=== PATIENT | female | born 1950 | race Caucasian/White ===

== ENCOUNTER → 2018-01-10 10:54 | Outpatient (CLI) | payer MEDICARE, OTHER, SELFPAY | PROVIDERS: Visit Provider Physician Assistant | DX: Z53.9 Procedure and treatment not carried out, unspecified reason (principal) ==

== ENCOUNTER 2018-03-09 07:39 | Day surgery (SDC) | payer MEDICARE, OTHER, SELFPAY ==
[2018-03-09 08:14] VITALS: BP 112/80; PULSE 67; RESP 14; TEMP 36.2; O2SAT 96; BMI 28.7
[2018-03-09] MEDS: SODIUM CHLORIDE 0.9% 1,000 ML 200 ML IV (08:23)
--- NOTE | 2018-03-09 09:04 | PM.HP.1 ---
History of Present Illness Date Patient Seen: 03/09/18 Time Patient Seen: 09:00 Chief complaint: [id number] Narrative: The patient is a woman here for an EGD and possible dilatation. She is having dysphagia of liquids principally causing choking. Solid stone seem to bother her. She has had a problem like this in the past except with solids the cause the problem. Patient History Medical History Dysphagia (Acute) Surgical History Status post dilatation of esophageal stricture (Inactive) Family & Social History Family History: Reviewed 03/09/18 by Jeff Watson MD Social History: household members spouse Meds Home Medications Medication Instructions Recorded Confirmed Type cholecalciferol (vitamin D3) 1 tab PO QDAY #0 08/01/16 03/09/18 History [Vitamin D3] dimenhydrinate [Dramamine] 50 mg PO PRN PRN #0 08/01/16 03/09/18 History doxylamine succinate [Sleep Aid 25 mg PO PRN PRN #0 08/01/16 03/09/18 History (doxylamine)] magnesium oxide 250 mg PO DAILY #0 08/01/16 03/09/18 History [employer] sleep aid PO 02/02/18 02/02/18 History ibuprofen 600 mg tablet 600 mg PO BID PRN tab 02/02/18 03/09/18 History melatonin 5 mg capsule 10 mg PO PRN PRN cap 02/02/18 03/09/18 History multivitamin tablet 1 tab PO DAILY 02/02/18 03/09/18 History omeprazole 20 mg capsule,delayed 20 mg PO DAILY 02/02/18 03/09/18 History release Allergies Allergy/AdvReac Type Severity Reaction Status Date / Time Penicillins [PENICILLINS] AdvReac Unknown NAUSEA Verified 03/09/18 09:03 Review of Systems Review of Systems All systems reviewed & are unremarkable except as noted in HPI and below Exam Vital Signs (past 8 hours): - 03/09/18 08:14 Temperature 97.2 F L Pulse Rate 67 Respiratory Rate 14 Blood Pressure 112/80 Pulse Oximetry 96 Oxygen Delivery Method Room Air Narrative Exam Narrative: Co Operative no apparent distress. Eyes nonicteric. Lungs are clear to auscultation without rales or rhonchi. Heart regular rate and rhythm without murmur or gallop abdomen is protuberant soft nontender without mass. Alert and oriented x3. Assessment & Plan Plan: Assessment/Plan Narrative: Patient with dysphagia of liquids. We will proceed EGD. I have discussed procedure rationale. Discussed possible dilatation. Risks of bleeding and perforation discussed. She appears to understand wishes to proceed.
[2018-03-09] MEDS: TETRACAINE/BENZOCAINE/BUTAMBEN (CETACAINE) BOTTLE 1 SPRAY TOP (09:08)
--- NOTE | 2018-03-09 09:08 | PM.PREOP ---
Pre-operative Note Interval Note Pre-op Check: Yes History & Physical exam performed today by Physician Changes: No ASA Class (for procedural sedation): I
[2018-03-09] MEDS: LIDOCAINE 4% SOLN 50 ML 20 ML TOP (09:09)
[2018-03-09] MEDS: ONDANSETRON 4 MG/2 ML INJ IV (09:11)
[2018-03-09] MEDS: MIDAZOLAM 5 MG/5 ML VIAL IV (09:23)
--- NOTE | 2018-03-09 09:23 | PM.OP.ENDO ---
Operative Date/Time/Diagnoses Date of procedure: 03/09/18 Time of procedure: 09:23 Pre-op diagnosis: Dysphagia of liquids Post-op diagnosis: same Procedure & Clinicians Study performed: EGD Same procedure as scheduled: Yes Indications: Evaluate cause of dysphagia Surgeon: Jeff Watson Procedure Notes SCOAP/Timeout: Performed Procedure in detail: The patient had topical anesthetic applied to oropharynx. She was placed in left lateral decubitus position and underwent IV sedation directed by the surgeon consisting of fentanyl and Versed. A bite block was inserted and the scope was advanced through it into the esophagus. I took great care entering the esophagus to evaluate this area and there was nothing untoward. The esophagus was unremarkable. GE junction was noted at 30 cm from the incisors. There was a 1 cm hiatal hernia. There was no inflammation and no stricture. The stomach insufflated well. There were no lesions seen in the body, antrum or at the incisura. The pyloric channel was [normally patent]. The duodenum was unremarkable to the 4th part. The scope was brought back into the stomach and retroflexed. The proximal stomach was normal except for the small hiatal hernia. The scope was straightened and brought out through the esophagus again. Once again I pulled very early slowly through the esophagus especially the upper esophagus but identified no abnormality. No lesions were seen. The scope was removed and the patient tolerated the procedure well. Scope withdrawal time: Not applicable Sedation minutes: 11 Findings: hiatal hernia (Small) Specimen(s): none sent Complications: none Recommendations: Continue medication(s) (Omeprazole) and Other recommendation (Barium swallow was speech pathology) Plan for aftercare: Follow-up after barium swallow. Disposition: PACU
[2018-03-09] MEDS: fentaNYL 250 MCG/5 ML INJ IV (09:24)
[2018-03-09 09:25] VITALS: BP 96/63; PULSE 69; RESP 14; TEMP 36.6; O2SAT 97
--- NOTE | 2018-03-09 09:27 | P.OP.ENDO_ITS ---
Operative Date/Time/Diagnoses Date of procedure: 03/09/18 Time of procedure: 09:23 Pre-op diagnosis: Dysphagia of liquids Post-op diagnosis: same Procedure & Clinicians Study performed: EGD Same procedure as scheduled: Yes Indications: Evaluate cause of dysphagia Surgeon: Jeff Watson Procedure Notes SCOAP/Timeout: Performed Procedure in detail: The patient had topical anesthetic applied to oropharynx. She was placed in left lateral decubitus position and underwent IV sedation directed by the surgeon consisting of fentanyl and Versed. A bite block was inserted and the scope was advanced through it into the esophagus. I took great care entering the esophagus to evaluate this area and there was nothing untoward. The esophagus was unremarkable. GE junction was noted at 30 cm from the incisors. There was a 1 cm hiatal hernia. There was no inflammation and no stricture. The stomach insufflated well. There were no lesions seen in the body , antrum or at the incisura. The pyloric channel was [normally patent]. The duodenum was unremarkable to the 4th part. The scope was brought back into the stomach and retroflexed. The proximal stomach was normal except for the small hiatal hernia. The scope was straightened and brought out through the esophagus again. Once again I pulled very early slowly through the esophagus especially the upper esophagus but identified no abnormality. No lesions were seen. The scope was removed and the patient tolerated the procedure well. Scope withdrawal time: Not applicable Sedation minutes: 11 Findings: hiatal hernia (Small) Specimen(s): none sent Complications: none Recommendations: Continue medication(s) (Omeprazole) and Other recommendation ( Barium swallow was speech pathology) Plan for aftercare: Follow-up after barium swallow. Disposition: PACU
[2018-03-09 09:30] VITALS: BP 94/64; PULSE 65; RESP 10; O2SAT 98
[2018-03-09 09:36] VITALS: BP 104/73; PULSE 64; RESP 12; O2SAT 96
[2018-03-09 09:42] VITALS: BP 194/69; PULSE 73; RESP 14; O2SAT 98
[2018-03-09 09:55] VITALS: BP 119/62; PULSE 77; RESP 16; O2SAT 99
--- NOTE | 2018-03-09 14:08 | SUR.PHASEII ---
late entry: assumed care from freddy, pt's called, d/c instructions discussed, all voiced an understanding, pt left when ready and left in stable condition.
== END 2018-03-09 11:00 | disposition home or self-care (01) ==
PROVIDERS: Specialist; Visit Provider Surgery
PROC: 0DJ08ZZ Inspection of Upper Intestinal Tract, Via Natural or Artificial Opening Endoscopic (ICD-10-PCS; CPT 43235; principal; 2018-03-09 08:45)
DX: R13.10 Dysphagia, unspecified (principal); K44.9 Diaphragmatic hernia without obstruction or gangrene
CPT/HCPCS: 43235; 99152; J2250; J2405; J3010

== ENCOUNTER → 2018-03-12 10:34 | Outpatient (CLI) | payer MEDICARE, OTHER, SELFPAY ==
--- NOTE | 2018-03-12 10:36 | DI.RAD.S_ITS ---
PROCEDURE: FL BARIUM SWALLOW W SPEECH INDICATIONS: Dysphagia of liquids with choking. Normal EGD TECHNIQUE: Examination was conducted in conjunction with speech pathology per standard protocol. In the lateral projection, filming was performed of the patient swallowing. AP projection filming may also be performed with patient swallowing. COMPARISON: None. FINDINGS: Function: The oral preparatory phase appears normal, with proper containment. The subsequent oral propulsive phase, pharyngeal phase, and esophageal phase of swallowing also appear normal with all proffered substances. No laryngotracheal penetration or aspiration. No pathologic vallecular pooling. Patient was able to swallow a barium pill, which paused briefly at the level of the cricopharyngeal bar and then passed through the esophagus into the stomach. 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 No diverticula or strictures seen. 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 No laryngeal penetration or tracheal aspiration. Dictated by: Rodrigo Kearns M.D. on 03/12/2018 at 13:19 Approved by: Rodrigo Kearns M.D. on 03/12/2018 at 13:23
--- NOTE | 2018-03-12 12:12 | ST.SWALLOW ---
Care Team Visit Care Team Role Provider Type Jeff Waston MD Attending Provider Physician Specialty: General Surgery Address: [address] [place] [address], [id number] Email: [email or web address] Modified Barium Swallow Study SHEET METAL WORKER SUPERVISOR Modified Barium Swallow Study Start: 03/12/18 11:51 Freq: Status: Active Protocol: Document 03/12/18 11:52 MRM (Rec: 03/12/18 12:12 MRM [id number]) Modified Barium Swallow Study Total Time Visit Start Time 11:00 Visit Stop Time 11:45 Total Visit Minutes [address] Watson Reason for Referral Dysphagia Setting Setting Outpatient Care Patient Information Identification Type Name Other Patient History Patient is a 67 year old female present for an outpatient MBS to determine the nature and safety of her swallowing. Per EMR records, she has a history of a peptic stricture, which was dilated roughly 10 years ago. Prior to this dialation, the patient did experience an episode of choking, in which 911 was called and she gagged herself to dislodge a piece of steak from her pharynx. Since this dilation, she has not experienced another episode of choking. However, she does experience sticking and the need to cough fairly frequently. Typically, this sensation occurs with liquids, but it can also happen with foods. She stated that she experiences the most difficulty in the evenings, typically with the first few swallows. She was seen on 03/09 for an EGD and possible dilation. Please see full medical chart for details. However, impressions of this procedure indicated a small, 1cm hiatal hernia. No inflammation, no stricture. ( Taken from report by Dr Masterson on 03/09/18). Patient was then referred for an MBS to further evaluate her swallowing. Subjective Observations Patient arrived on time for her procedure. No family present. Very oriented and able to provide a thorough medical history. Able to independently trial all PO throughout the evaluation and receive education from SHEET METAL WORKER SUPERVISOR and Radiologist after the study, verbalizing understanding of all content. Patient Positioning Position View Lat-A/P Imaging Lateral View Textures Administered Trials Presented Thin Liquid via Cup Dysphagia Blenderized Textures Dysphagia Mechanical Textures Regular Textures Barium Tablet Oral Phase Source: MBSIMP (TM) (C) Bolus Specific Scoring Grid Lip Closure No Impairment (WNL) Tongue Control During Bolus Hold No Impairment (WNL) Bolus Prep/Mastication No Impairment (WNL) Bolus Transport/Lingual Motion No Impairment (WNL) A/P Lingual Propulsion Delay No Number of Seconds Delayed (seconds) No delay Oral Residue WFL Residue Clearing WFL Nasal Regurgitation No Additional Oral Phase Observations Oral phase within normal limits. Trace oral residue observed with puree applesauce , but able to independently clear with spontaneous double swallow. No oral dysphagia. Pharyngeal Phase Source: MBSIMP (TM) (C) Bolus Specific Scoring Grid Delayed Initiation of Pharyngeal Swallow No Number of Seconds Delayed (seconds) No delay Soft Palate Elevation WFL Tongue Base Strength/Range of Motion WFL Residue Along the Tongue Base No Clearance of Residue Along Tongue Base WFL Laryngeal Elevation No Impairment (WNL) Anterior Hyoid Movement No Impairment (WNL) Epiglottic Range of Motion No Impairment (WNL) Vallecular Residue No Clearance of Vallecular Residue No Impairment (WNL) Laryngeal Vestibular Closure No Impairment (WNL) Pharyngeal Stripping Wave WFL Pharyngeal Contraction WFL Posterior Pharyngeal Wall Residue No Clearance of Posterior Pharyngeal Wall No Impairment (WNL) Residue Upper Esophageal Sphincter Opening WFL Residue in the Pyriform Sinuses No Clearance of Residue in the Pyriform No Impairment (WNL) Sinuses Esophageal Clearance Upright Position No Impairment (WNL) Pharyngoesophageal Backflow Observed No Additional Pharyngeal Phase Observations No penetration or aspiration observed throughout the evaluation. No pharyngeal residue observed after any trials (liquid or solid). SHEET METAL WORKER SUPERVISOR and Radiologist did observed the appearance of a cricopharyngeal bar (please see Radiologist's report for further details). Observed dry cracker and barium tablet to slow around this CP bar, but these trials did clear without residue. Dry swallow initiated to assist in clearance during trial of barium tablet. No other pharyngeal abnormalities observed. A/P View Textures Administered Trials Presented Thin Liquid via Cup A/P View Observations Pharyngeal Contraction No Impairment (WNL) Vocal Fold Function Good Esophageal Function No Impairment (WNL) Esophageal Clearance Upright Position No Impairment (WNL) Esophageal Observations Esophageal Function No esophageal impairment observed by SHEET METAL WORKER SUPERVISOR. Please see Radiologist's report for further details. Clinical Impressions Dysphagia Type No dysphagia Findings Patient presents with a functional and safe swallow. No oropharyngeal dysphagia observed. Oral control and coordination functional for all trials. Able to tolerate thin liqudis, puree textures, soft fruit, a dry cracker and a barium tablet with water without oral difficulty. Observed mild premature spillage into pharynx, to the valleculae, during mastication of soft fruit, but swallow response was very prompt after this mild spillage. No pharyngeal residue observed throughout trials. No penetration or aspiration observed throughout the study. 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 Recommend follow up with an ENT to evaluate further. No other oral, pharyngeal or esophageal issues identified by SHEET METAL WORKER SUPERVISOR or Radiologist. RECOMMEND: Continue current diet of thin liquids with regular textures. Initiate drinking with small, deliberate sips. Single sips. Advance as tolerable. Take large pills in carrier, if easier. Follow strict GERD precautions. Per patient, her doctor recommended taking omeprazole twice a day, but she is currently taking one tablet a day, in the mornings. Consider taking two a day, per MD recommendation. SHEET METAL WORKER SUPERVISOR provided written education for GERD symptoms, foods to avoid , and life style modifications to improve function. Patient verbalized understanding. SHEET METAL WORKER SUPERVISOR explained the CP bar and why it may be causing some difficulty swallowing. SHEET METAL WORKER SUPERVISOR recommended following up with MD and ENT to further discuss CP bar. At this time, no outpatient speech therapy is warranted. However, should the patient's condition worsen, please reconsult. Rehabilitation Potential Excellent Patient Appropriate for Therapy No Recommendations Diet Liquids Order Thin Diet Order Regular Medication Recommendation As Tolerated Whole in Carrier Aspiration Precautions Recommended Precautions Upright at 90 Degrees Small Bites/Sips Effortful Swallow Treatment Plan Therapy Recommendations GERD/Vocal Hygiene Education Recommended Referrals Primary Care Physician ENT Consult Compensatory Strategies Recommendations Sitting Upright (90 deg) Usp Goals Patient will tolerate the safest, least restrictive diet without overt s/s of aspiration. Patient will implement GERD precautions to improve overall state of health. Patient will follow up with MD and ENT to further discuss presence of CP bar, as identified by Radiologist. Placement Recommendation After Discharge Home Additional Recommendations/Comments Thank you for the consult.
== END ==
PROVIDERS: Visit Provider Specialist
DX: R13.10 Dysphagia, unspecified (principal)
CPT/HCPCS: 74230; 92611

== ENCOUNTER → 2021-12-16 14:53 | Outpatient (CLI) | payer MEDICARE, SELFPAY ==
--- NOTE | 2021-12-16 14:54 | DI.MG.S_ITS ---
BILATERAL DIGITAL SCREENING MAMMOGRAM 3D/2D WITH CAD: 12/16/2021 CLINICAL: Routine screening. Family history of breast cancer. Baseline exam. No prior exams were available for comparison. There are scattered fibroglandular elements in both breasts. Current study was also evaluated with a Computer Aided Detection (CAD) system. No significant masses, calcifications, or other findings are seen in either breast. IMPRESSION: NEGATIVE There is no mammographic evidence of malignancy. A 1 year screening mammogram is recommended. This exam was interpreted at Station ID: [id number]. NOTE: For mammograms, a report in lay terms will be sent to the patient. Approximately 15% of breast malignancies will not be visualized mammographically. In the management of a palpable breast mass, a negative mammogram must not discourage biopsy of a clinically suspicious lesion. Electronically Signed By: Omkar dave/bruno:12/16/2021 17:40:32 letter sent: Normal Exam ACR BI-RADS Category 1: Negative [id number]
== END ==
PROVIDERS: Referring Provider Family Medicine; Visit Provider Family Medicine
DX: Z12.31 Encounter for screening mammogram for malignant neoplasm of breast (principal); Z80.3 Family history of malignant neoplasm of breast
CPT/HCPCS: 77063; 77067

== ENCOUNTER → 2023-02-02 09:55 | Outpatient (CLI) | payer MEDICARE, SELFPAY ==
--- NOTE | 2023-02-02 | DI.RAD.S_ITS ---
PROCEDURE: XR LUMBAR SPINE 2-3V INDICATIONS: NECK AND BACK PAIN TECHNIQUE: 3 views of the lumbar spine were acquired. COMPARISON: None. FINDINGS: Bones: 5 [id number] vertebrae are present. Grade 1 anterolisthesis L4 on L5. Mild to moderate disc height loss at all levels. Facet arthrosis L2 through S1. Will of vertebral body height loss of T11. Soft tissues: Overlying bowel gas pattern is normal. No suspicious soft tissue calcifications. IMPRESSION: New line mild to moderate, multilevel degenerative disc disease and facet arthrosis. Grade 1 anterolisthesis of L4 on L5, presumably due to facet arthrosis. Dictated by: Carmelo Rodriguez M.D. on 02/02/2023 at 15:02 Approved by: Carmelo Rodriguez M.D. on 02/02/2023 at 15:05
--- NOTE | 2023-02-02 | DI.RAD.S_ITS ---
PROCEDURE: XR THORACIC SPINE 2V INDICATIONS: NECK AND BACK PAIN TECHNIQUE: 3 views of the thoracic spine were acquired. COMPARISON: None. FINDINGS: Bones: No fractures or dislocations. No suspicious bony lesions. 12 pairs of ribs are noted, and appear intact where visualized. Mild vertebral body height loss of T11. Mild disc height loss at all levels. Soft tissues: No paravertebral stripe thickening. IMPRESSION: Mild multilevel degenerative disc disease. Dictated by: Carmelo Rodriguez M.D. on 02/02/2023 at 15:05 Approved by: Carmelo Rodriguez M.D. on 02/02/2023 at 15:05
== END ==
PROVIDERS: PCP Family Medicine; Referring Provider Family Medicine; Visit Provider Family Medicine
DX: M51.34 Other intervertebral disc degeneration, thoracic region (principal); M51.36 Other intervertebral disc degeneration, lumbar region; M47.816 Spondylosis without myelopathy or radiculopathy, lumbar region; M47.817 Spondylosis without myelopathy or radiculopathy, lumbosacral region; M43.16 Spondylolisthesis, lumbar region; M46.92 Unspecified inflammatory spondylopathy, cervical region; M54.59 Other low back pain
CPT/HCPCS: 72070; 72100